=== PATIENT | male | born 1965 | race Caucasian/White ===

== ENCOUNTER 2021-01-18 12:40 | Inpatient (IN) ==
[2021-01-18] MEDS ORDERED: Ipratropium/Albuterol Neb 3 ML IH ONE (13:43)
[2021-01-18] MEDS ORDERED: methylPREDNISolone 125 MG/2 ML VIAL IVP ONE (13:43)
[2021-01-18 13:45] LABS: Basophils % 0.5 %; Eosinophils # 0.1 K/mcL (0.0-0.6); Eosinophils % 1.8 %; Hematocrit 43.1 % (37.5-50.1); Hemoglobin 13.6 g/dL (12.9-16.9); Immature Granulocytes % 0.3 % (0-4); Lymphocytes # 1.6 K/mcL (0.6-4.6); Lymphocytes % 20.4 %; Mean Corpuscular HGB Conc 31.6 g/dL (31.6-35.5); Mean Corpuscular Hemoglobin 28.6 pg (28.0-33.3); Mean Corpuscular Volume 90.5 fL (83.0-100.0); Mean Platelet Volume 10.5 fL (9.4-12.4); Monocytes # 0.9 K/mcL (0.0-1.3); Monocytes % 11.8 %; Neutrophils # 5.2 K/mcL (1.6-8.9); Platelet Count 219 K/mcL (140-400); Red Blood Count 4.76 M/mcL (4.19-5.50); Red Cell Distribution Width 13.4 % (11.5-14.5); Segmented Neutrophils % 65.2 %
[2021-01-18 13:48] LABS: BUN/Creatinine Ratio 13 (6-26); Blood Urea Nitrogen 16 mg/dL (6-20); Calcium 8.9 mg/dL (8.6-10.3); Carbon Dioxide 27 mEq/L (23-29); Chloride 104 mEq/L (98-107); Glucose 113 mg/dL (70-105); Osmolality,Calculated 290 (280-300); Potassium 3.9 mEq/L (3.5-5.1); Sodium 139 mEq/L (136-145); eGFR For African Americans > 60 (> 60); eGFR For Non-African Americans > 60 (> 60)
[2021-01-18 13:55] LABS: Troponin I 0.07 ng/mL (< 0.04)
[2021-01-18] MEDS ORDERED: Isovue-370 500 ML BOTTLE IVP ONE (14:33)
[2021-01-18] MEDS ORDERED: Furosemide 40 MG/4 ML VIAL IVP ONE (14:33)
[2021-01-18] MEDS ORDERED: *HR* HYDROcodone/Acet 5/325 mg TABLET PO PRN (15:47)
[2021-01-18] MEDS ORDERED: Ondansetron 4 MG/2 ML VIAL IVP PRN (15:47)
[2021-01-18] MEDS ORDERED: Naloxone 0.4 MG/ML INJ IVP PRN (15:47)
[2021-01-18] MEDS ORDERED: Perflutren Lipid Microsphere 1.3 ML in 0.9 % Sodium Chloride 8.7 ML IVP PRN (15:50)
[2021-01-18] MEDS ORDERED: Azithromycin 250 MG TABLET PO SCH (16:00)
[2021-01-18] MEDS: Ipratropium/Albuterol Neb 3 ML IH SCH ×2 (16:18→19:35)
[2021-01-18] MEDS ORDERED: carvediloL 6.25 MG TABLET PO SCH (17:00)
[2021-01-18] MEDS: Furosemide 40 MG/4 ML VIAL IVP SCH (20:13)
[2021-01-18] MEDS: Azithromycin 250 MG TABLET PO SCH (20:14)
[2021-01-18] MEDS: MethylPREDNISolone 40 MG/ML VIAL IVP SCH (20:14)
[2021-01-18] MEDS ORDERED: tiZANidine 4 MG TABLET PO PRN (22:04)
[2021-01-19] MEDS: Ipratropium/Albuterol Neb 3 ML IH SCH ×7 (00:36→23:45)
[2021-01-19 01:26] LABS: INR 1.1; Prothrombin Time 12.6 Seconds (9.4-12.1)
[2021-01-19 01:38] LABS: BUN/Creatinine Ratio 16 (6-26); Blood Urea Nitrogen 21 mg/dL (6-20); Calcium 9.2 mg/dL (8.6-10.3); Carbon Dioxide 27 mEq/L (23-29); Chloride 101 mEq/L (98-107); Chol/HDL Ratio 2.9 (0-4.9); Cholesterol 184 mg/dL (< 200); Glucose 150 mg/dL (70-105); HDL Cholesterol 63 mg/dL (40-59); LDL Cholesterol,Calculated 103 mg/dL (< 100); Magnesium 2.1 mg/dL (1.6-2.6); Osmolality,Calculated 290 (280-300); Phosphorous 2.3 mg/dL (2.7-4.5); Potassium 4.3 mEq/L (3.5-5.1); Sodium 137 mEq/L (136-145); Triglycerides 90 mg/dL (< 150); eGFR For African Americans > 60 (> 60); eGFR For Non-African Americans 57 (> 60)
[2021-01-19 02:52] LABS: Estimated Average Glucose 134 mg/dl; Hemoglobin A1C 6.3 %
[2021-01-19] MEDS: MethylPREDNISolone 40 MG/ML VIAL IVP SCH ×2 (05:55→17:05)
[2021-01-19] MEDS: *HR* Enoxaparin 40 MG/0.4 ML SYRINGE SQ SCH (05:56)
[2021-01-19] MEDS ORDERED: carvediloL 6.25 MG TABLET PO SCH ×2 (08:00→17:00)
[2021-01-19] MEDS: Furosemide 40 MG/4 ML VIAL IVP SCH ×2 (09:23→21:32)
[2021-01-19] MEDS: Azithromycin 250 MG TABLET PO SCH (17:06)
[2021-01-20] MEDS: Ipratropium/Albuterol Neb 3 ML IH SCH ×6 (03:39→23:48)
[2021-01-20] MEDS: *HR* Enoxaparin 40 MG/0.4 ML SYRINGE SQ SCH (06:05)
[2021-01-20] MEDS: MethylPREDNISolone 40 MG/ML VIAL IVP SCH (06:05)
[2021-01-20] MEDS: Furosemide 40 MG/4 ML VIAL IVP SCH ×2 (07:53→20:08)
[2021-01-20] MEDS ORDERED: carvediloL 25 MG TABLET PO SCH (08:00)
[2021-01-20] MEDS: lisinopriL 5 MG TABLET PO SCH (11:53)
[2021-01-20] MEDS ORDERED: *HR* Metoprolol 5 MG/5 ML VIAL IVP PRN (13:30)
[2021-01-20] MEDS: Azithromycin 250 MG TABLET PO SCH (17:07)
[2021-01-21] MEDS: Ipratropium/Albuterol Neb 3 ML IH SCH ×4 (03:24→15:25)
[2021-01-21] MEDS: *HR* Enoxaparin 40 MG/0.4 ML SYRINGE SQ SCH (05:23)
[2021-01-21] MEDS ORDERED: Spironolactone 12.5 MG TABLET PO SCH (09:00)
[2021-01-21] MEDS ORDERED: predniSONE 20 MG TABLET PO SCH (09:00)
[2021-01-21] MEDS ORDERED: Aspirin Enteric Coated 81 MG Tablet PO SCH (09:00)
[2021-01-21] MEDS: lisinopriL 5 MG TABLET PO SCH (09:07)
[2021-01-21] MEDS: Furosemide 40 MG/4 ML VIAL IVP SCH (09:08)
[2021-01-21] MEDS ORDERED: Heparin 1,000 UNITS/500 mL 500 ML ONE (13:54)
[2021-01-21] MEDS ORDERED: *HR* Midazolam HCl 2 MG/2 ML VIAL ONE (13:54)
[2021-01-21] MEDS ORDERED: *HR* FentaNYL (PF) 100 MCG/2 ML VIAL ONE (13:54)
[2021-01-21] MEDS ORDERED: 0.9 % Sodium Chloride 2,000 ML ONE (13:54)
[2021-01-21] MEDS ORDERED: Nitroglycerin 1,000 MCG/5 ML VIAL IV ONE (13:55)
[2021-01-21] MEDS ORDERED: ISOVUE-370 200 ML INFUS..BTL ONE (13:55)
[2021-01-21] MEDS ORDERED: *HR* Heparin 10,000 UNIT/10 ML VIAL ONE (13:55)
[2021-01-21 15:41] VITALS: BP 112/68
[2021-01-22] MEDS ORDERED: predniSONE 20 MG TABLET PO SCH (09:00)
[2021-01-22] MEDS ORDERED: Metoprolol XL (24 HR) Succ 25 MG TAB.ER.24H PO SCH (09:00)
[2021-01-22] MEDS ORDERED: Furosemide 40 MG TABLET PO SCH (21:00)
== END 2021-01-21 17:58 | disposition home or self-care (01) | DRG 192 ==
LOC: 2ANU 12:40 → EMEROOARM 12:40 → SUATTDRO 15:51 → 2ANU 17:21
PROVIDERS: ADMIT Internal Medicine; ATTEND Internal Medicine